=== PATIENT | female | born 1985 | race American Indian/Alaskan Native ===

== ENCOUNTER 2018-04-27 12:59 | Emergency (ER) | payer BC ==
[2018-04-27 13:07] VITALS: BP 118/80
[2018-04-27 14:15] LABS: Bilirubin,Urine NEG (Negative); Blood,Urine NEG (Negative); Color,Urine Yellow (Yellow); Mucus,Urine FEW /HPF; Protein,Urine <15 mg/dL mg/dL (Negative)
[2018-04-27 14:19] LABS: HCG Qualitative,Urine Negative (Negative)
[2018-04-27 14:32] LABS: Basophils # (Auto) 0.1 K/mm3 (0.0-0.1); Basophils % (Auto) 0.8 % (0.0-1.8); Eosinophils # (Auto) 0.2 K/mm3 (0.0-0.4); Eosinophils % (Auto) 2.7 % (0.0-4.3); Hematocrit 34.6 % (30.3-42.9); Hemoglobin 11.6 gm/dl (10.1-14.3); Lymphocytes # (Auto) 2.8 K/mm3 (1.2-5.4); Mean Corpuscular HGB Conc 34 % (30-34); Mean Corpuscular Volume 98 fl (79-97); Monocytes # (Auto) 0.4 K/mm3 (0.0-0.8); Monocytes % (Auto) 6.6 % (0.0-7.3); Platelet Count 258 K/mm3 (140-440); Red Blood Count 3.53 M/mm3 (3.65-5.03); Red Cell Distribution Width 13.3 % (13.2-15.2)
--- NOTE | 2018-04-27 15:07 | Ultrasound Report ---
ULTRASOUND PELVIC COMPLETE History: Pelvic pain. Findings: Transabdominal ultrasound imaging was performed. The uterus is anteverted and measures 10.3 x 5.6 x 7.0 cm. No evidence for uterine fibroid disease. The endometrial stripe is homogeneous and measures 13 mm. The ovaries are normal size, contour and echotexture. No adnexal cyst or mass. No pelvic fluid collection. Impression: Normal exam.
--- NOTE | 2018-04-27 15:29 | Emergency Department Report ---
ED General Adult HPI - General Chief complaint: Abdominal Pain Stated complaint: STOMACH PAIN Time Seen by Provider: 04/27/18 13:29 Source: patient Mode of arrival: Ambulatory Limitations: No Limitations - History of Present Illness Initial comments: She presents to emergency department with a chief complaint of feeling bloated and abdominal pain. Patient has a history of ovarian cyst and is concerned that one and may have ruptured. Patient denies any vaginal discharge or vaginal bleeding. -: Gradual Location: abdomen Radiation: non-radiation Severity scale (0 -10): 3 Quality: aching, dull Consistency: constant Improves with: none Worsens with: none Associated Symptoms: denies other symptoms Treatments Prior to Arrival: none - Related Data Previous Rx's Medication Instructions Recorded Last Taken Type Dicyclomine [Bentyl] 20 mg PO TID PRN #30 tablet 04/27/18 Unknown Rx Allergies Allergy/AdvReac Type Severity Reaction Status Date / Time No Known Allergies Allergy Verified 04/27/18 13:04 ED Review of Systems ROS: Stated complaint: STOMACH PAIN Other details as noted in HPI Comment: All other systems reviewed and negative Constitutional: denies: chills, fever Eyes: denies: eye pain, eye discharge, vision change ENT: denies: ear pain, throat pain Respiratory: denies: cough, shortness of breath, wheezing Cardiovascular: denies: chest pain, palpitations Endocrine: no symptoms reported Gastrointestinal: abdominal pain. denies: nausea, diarrhea Genitourinary: denies: urgency, dysuria, discharge Musculoskeletal: denies: back pain, joint swelling, arthralgia Skin: denies: rash, lesions Neurological: denies: headache, weakness, paresthesias Psychiatric: denies: anxiety, depression Hematological/Lymphatic: denies: easy bleeding, easy bruising ED Past Medical Hx - Past Medical History Previous Medical History?: No - Surgical History Past Surgical History?: No - Social History Smoking Status: Current Every Day Smoker Substance Use Type: Alcohol, Marijuana - Medications Home Medications: Home Medications Medication Instructions Recorded Confirmed Last Taken Type Dicyclomine [Bentyl] 20 mg PO TID PRN #30 tablet 04/27/18 Unknown Rx ED Physical Exam - General Limitations: No Limitations General appearance: alert, in no apparent distress - Head Head exam: Present: atraumatic, normocephalic - Eye Eye exam: Present: normal appearance, PERRL, EOMI - ENT ENT exam: Present: mucous membranes moist - Neck Neck exam: Present: normal inspection - Respiratory Respiratory exam: Present: normal lung sounds bilaterally. Absent: respiratory distress, wheezes, rales, rhonchi - Cardiovascular Cardiovascular Exam: Present: regular rate, normal rhythm. Absent: systolic murmur, diastolic murmur, rubs, gallop - GI/Abdominal GI/Abdominal exam: Present: soft, tenderness (tenderness to palpation suprapubic region), normal bowel sounds. Absent: distended - Extremities Exam Extremities exam: Present: normal inspection - Back Exam Back exam: Present: normal inspection - Neurological Exam Neurological exam: Present: alert, oriented X3, CN II-XII intact. Absent: motor sensory deficit - Psychiatric Psychiatric exam: Present: normal affect, normal mood - Skin Skin exam: Present: warm, dry, intact, normal color. Absent: rash ED Course Vital Signs 04/27/18 13:04 Temperature 98.1 F Pulse Rate 66 Respiratory 18 Rate Blood Pressure 118/80 O2 Sat by Pulse 100 Oximetry ED Medical Decision Making - Lab Data Result diagrams: 04/27/18 14:22 Lab Results 04/27/18 04/27/18 Range/Units 13:44 14:22 WBC 6.6 (4.5-11.0) K/mm3 RBC 3.53 L (3.65-5.03) M/mm3 Hgb 11.6 (10.1-14.3) gm/dl Hct 34.6 (30.3-42.9) % MCV 98 H (79-97) fl MCH 33 H (28-32) pg MCHC 34 (30-34) % RDW 13.3 (13.2-15.2) % Plt Count 258 (140-440) K/mm3 Lymph % (Auto) 43.0 H (13.4-35.0) % [place] % (Auto) 6.6 (0.0-7.3) % Eos % (Auto) 2.7 (0.0-4.3) % Baso % (Auto) 0.8 (0.0-1.8) % Lymph # 2.8 (1.2-5.4) K/mm3 [place] # 0.4 (0.0-0.8) K/mm3 Eos # 0.2 (0.0-0.4) K/mm3 Baso # 0.1 (0.0-0.1) K/mm3 Seg Neutrophils % 46.9 (40.0-70.0) % Seg Neutrophils # 3.1 (1.8-7.7) K/mm3 Urine Color Yellow (Yellow) Urine Turbidity Clear (Clear) Urine pH 7.0 (5.0-7.0) Ur Specific [place] 1.023 (1.003-1.030) Urine Protein <15 mg/dl (Negative) mg/dL Urine Glucose (UA) Neg (Negative) mg/dL Urine Ketones Neg (Negative) mg/dL Urine Blood Neg (Negative) Urine Nitrite Neg (Negative) Ur Reducing Substances Not Reportable Urine Bilirubin Neg (Negative) Urine Ictotest Not Reportable Urine Urobilinogen 4.0 (<2.0) mg/dL Ur Leukocyte Esterase Neg (Negative) Urine WBC (Auto) 1.0 (0.0-6.0) /HPF Urine RBC (Auto) 1.0 (0.0-6.0) /HPF U Epithel Cells (Auto) 3.0 (0-13.0) /HPF Urine Mucus Few /HPF Urine HCG, Qual Negative (Negative) - Radiology Data Radiology results: report reviewed interpreted by me: [facility] [address] [place] [address] Ultrasound Report Signed Patient: GEOFF BOOTH MR#: [id number] : 1985 Acct:[id number] Age/Sex: 33 / F ADM Date: 04/27/18 Loc: ED Attending Dr: Ordering Physician: AIDEE JOHNSON MD Date of Service: 04/27/18 Procedure(s): US pelvic complete Accession Number(s): [id number] cc: AIDEE JOHNSON MD ULTRASOUND PELVIC COMPLETE History: Pelvic pain. Findings: Transabdominal ultrasound imaging was performed. The uterus is anteverted and measures 10.3 x 5.6 x 7.0 cm. No evidence for uterine fibroid disease. The endometrial stripe is homogeneous and measures 13 mm. The ovaries are normal size, contour and echotexture. No adnexal cyst or mass. No pelvic fluid collection. Impression: Normal exam. Transcribed By: TTR Dictated By: BERTHA RAMSEY JR, MD Electronically Authenticated By: BERTHA RAMSEY JR, MD Signed Date/Time: 04/27/18 1504 DD/ 1503 TD/TT: 04/27/18 1504 Critical care attestation.: If time is entered above; I have spent that time in minutes in the direct care of this critically ill patient, excluding procedure time. ED Disposition Clinical Impression: Abdominal pain, Pelvic pain Disposition: TO HOME OR SELFCARE Is pt being admited?: No Does the pt Need Aspirin: No Condition: Stable Instructions: Abdominal Pain (ED), Chronic Pelvic Pain in Women (ED) Additional Instructions: return if worse Prescriptions: Dicyclomine [Bentyl] 20 mg PO TID PRN #30 tablet PRN Reason: pain Referrals: CASTILLO ALEXANDER MD [Primary Care Provider] - 3-5 Days Time of Disposition: 15:26
[2018-04-27 16:18] LABS: Alanine Aminotransferase 6 units/L (7-56); Albumin 4.1 g/dL (3.9-5); BUN/Creatinine Ratio 18; Blood Urea Nitrogen 14 mg/dL (7-17); Calcium 9.5 mg/dL (8.4-10.2); Hemolysis Index 5
== END 2018-04-27 15:38 | disposition home or self-care (01) ==
LOC: ED 12:59
DX: R10.2 Pelvic and perineal pain (principal); R14.0 Abdominal distension (gaseous); F17.200 Nicotine dependence, unspecified, uncomplicated; F12.10 Cannabis abuse, uncomplicated
CPT/HCPCS: 36415; 76856; 80053; 81001; 81025; 83690; 85025

== ENCOUNTER 2019-03-05 11:36 | Emergency (ER) | payer BC, OTHER ==
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
--- NOTE | 2019-03-05 13:05 | XRay Report ---
LUMBAR SPINE 3 VIEWS INDICATION: back pain. COMPARISON: No relevant prior imaging study available. FINDINGS: No acute fracture or subluxation is seen. There are no significant discogenic degenerative changes. A lignment is within normal limits. IMPRESSION: 1. No acute findings. Signer Name: Dennis Gardner MD Signed: 03/05/2019 1:01 PM Workstation Name: [id number]
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
[2019-03-05] MEDS ORDERED: HYDROcodone/ACETAMINOPHEN 5-325 MG TAB PO ONE (13:51)
[2019-03-05] MEDS ORDERED: IBUPROFEN 800 MG TAB PO ONE (13:51)
[2019-03-05 14:35] VITALS: BP 160/89
== END 2019-03-05 15:09 | disposition home or self-care (01) ==
LOC: ED 11:36
DX: S39.012A Strain of muscle, fascia and tendon of lower back, initial encounter (principal); G44.209 Tension-type headache, unspecified, not intractable; R03.0 Elevated blood-pressure reading, without diagnosis of hypertension; F17.200 Nicotine dependence, unspecified, uncomplicated; Z79.899 Other long term (current) drug therapy; X58.XXXA Exposure to other specified factors, initial encounter; Y93.89 Activity, other specified; Y92.89 Other specified places as the place of occurrence of the external cause; Y99.8 Other external cause status
CPT/HCPCS: 72100